=== PATIENT | female | born 1980 | race Caucasian/White ===

== ENCOUNTER 2023-01-15 17:00 | Emergency (ER) | payer MEDICAID ==
[2023-01-15] MEDS ORDERED: Sodium Chloride 0.9% 10 ML Syringe FLUSH PRN (19:51)
[2023-01-15] MEDS ORDERED: Sodium Chloride 0.9% 1,000 ML IV SCH (20:00)
[2023-01-15 20:08] VITALS: PULSE 79
[2023-01-15 20:09] VITALS: BP 126/61
[2023-01-15] MEDS ORDERED: Ondansetron 4 MG/2 ML SDV IVPUSH ONE (20:16)
[2023-01-15 20:27] LABS: ESTIMATED GFR 109 mL/min (>60)
[2023-01-15 20:58] LABS: CORONAVIRUS COVID-19 NAA POSITIVE (NEGATIVE)
== END 2023-01-15 21:58 | disposition home or self-care (01) ==
LOC: JP.ED 17:00
DX: U07.1 COVID-19 (principal); R19.7 Diarrhea, unspecified; Z72.0 Tobacco use; Z91.09 Other allergy status, other than to drugs and biological substances
CPT/HCPCS: 0241U; 36415; 80053; 83735; 85025; 86140; 96361; 96374; 99284; J2405; J7030; 99283

== ENCOUNTER 2025-01-14 14:43 | Emergency (ER) | payer MEDICAID ==
[2025-01-14 15:53] VITALS: BP 137/67; PULSE 82
== END 2025-01-14 16:16 | disposition home or self-care (01) ==
LOC: JP.ED 14:43
DX: J32.9 Chronic sinusitis, unspecified (principal); H66.91 Otitis media, unspecified, right ear; F17.210 Nicotine dependence, cigarettes, uncomplicated; Z90.710 Acquired absence of both cervix and uterus; Z79.899 Other long term (current) drug therapy; Z88.8 Allergy status to other drugs, medicaments and biological substances
CPT/HCPCS: 99283